=== PATIENT | male | born 1980 | race American Indian/Alaskan Native ===

== ENCOUNTER 2019-04-29 19:02 | Emergency (ER) | payer MEDICARE ==
[2019-04-29] MEDS ORDERED: ZIPRASIDONE MESYLATE 20 MG VIAL IM ONE (19:17)
[2019-04-29] MEDS ORDERED: WATER FOR INJ Sterile (PF) 10 ML ONE (19:18)
--- NOTE | 2019-04-29 20:20 | Emergency Department Report ---
HPI - General Time Seen by Provider: 04/29/19 19:59 - HPI HPI: 39-year-old -[place] male presents to the emergency department by EMS from his care home for a mental health evaluation. The patient is a poor historian or is not forthcoming and most information has come through EMS. Apparently the patient has a history of bipolar disorder. Unknown if he is on any medications or compliant with them. Apparently the patient was found walking around his care home in his boxers and talking to himself. At that point he apparently was verbally aggressive and EMS was called. When I asked the patient what happened today the patient says "[facility]." The pa ana either does not know the year or is unwilling to answer this question to assess his orientation. He will not answer all questions asked of him. The patient says "all I did was go to work" and "I just need to go back home, I promise I want drink all of the milk." ED Past Medical Hx - Past Medical History Previous Medical History?: Yes Additional medical history: bipolar, schizophrenia - Surgical History Past Surgical History?: No - Social History Smoking Status: Never Smoker ED Review of Systems ROS: Stated complaint: MH Other details as noted in HPI Comment: Unobtainable due to pts medical conditions Physical Exam - Physical Exam Physical Exam: GENERAL: The patient is well-developed well-nourished. HENT: Normocephalic. Atraumatic. Patient has moist mucous membranes. EYES: Extraocular motions are intact. NECK: Supple. Trachea is midline. CHEST/LUNGS: Clear to auscultation. There is no respiratory distress noted. HEART/CARDIOVASCULAR: Regular. There is no tachycardia. There is no murmur. ABDOMEN: Abdomen is soft, nontender. Patient has normal bowel sounds. SKIN: Skin is warm and dry. NEURO: Patient is awake but is not cooperative. No slurred speech. MUSCULOSKELETAL: There is no tenderness or deformity. There is no limitation range of motion. PSYCH: Patient appears to be expressing some tangential thoughts and delusions. ED Medical Decision Making - Lab Data Result diagrams: 04/29/19 20:43 04/29/19 20:43 - Radiology Data Radiology results: report reviewed CT of the head does not show any acute intracranial process including no ischemia, shift, mass, bleeding or skull fracture. - Medical Decision Making This patient presents to the emergency department after he was found wandering around his care home and his boxers and was showing signs of psychosis. Since the patient arrived to the emergency department he has been seen yelling, exhibiting some erratic behavior, and on examination continues with some sheridan gential thoughts and delusions. For this reason the patient has been made a 1013. He required some chemical sedation but then was compliant with labs and imaging. CT of the head did not show any bleed, shift, mass, ischemia, or any other acute process. Labs have been unremarkable including CBC, metabolic panel, blood alcohol level and urine drug screen. Vital signs stable throughout his ED course. The patient appears medically cleared for psychiatric placement. - Differential Diagnosis Bipolar disorder, schizophrenia, schizoaffective, substance abuse Critical Care Time: No Critical care attestation.: If time is entered above; I have spent that time in minutes in the direct care of this critically ill patient, excluding procedure time. ED Disposition Clinical Impression: Acute psychosis Disposition: DC/TX-65 PSY HOSP/PSY UNIT Is pt being admited?: No Condition: Stable Time of Disposition: 22:44
[2019-04-29 21:02] LABS: Hematocrit 44.5 % (35.5-45.6); Mean Corpuscular HGB Conc 34 % (32-34); Mean Corpuscular Volume 93 fl (84-94); Platelet Count 261 K/mm3 (140-440); Red Blood Count 4.82 M/mm3 (3.65-5.03); Red Cell Distribution Width 13.6 % (13.2-15.2)
[2019-04-29 21:19] LABS: Alanine Aminotransferase 43 units/L (7-56); Albumin 4.1 g/dL (3.9-5); BUN/Creatinine Ratio 11; Blood Urea Nitrogen 13 mg/dL (9-20); Calcium 8.9 mg/dL (8.4-10.2); Hemolysis Index 10
[2019-04-29 21:40] LABS: Basophils % (Manual) 0 % (0.0-1.8); Total Cells Counted 100
[2019-04-29 21:41] LABS: RBC Morphology Normal
--- NOTE | 2019-04-29 21:53 | Cat Scan Report ---
NONENHANCED CT SCAN OF THE HEAD: INDICATION / CLINICAL INFORMATION: 39 years Male; Altered mental status. TECHNIQUE: Routine CT head without contrast. All CT scans at this location are performed using CT dos e reduction for ALARA by means of automated exposure control. COMPARISON: None. FINDINGS: BRAIN / INTRACRANIAL CONTENTS: No acute hemorrhage, mass effect, midline shift, hydrocephalus, or ac [place], large territorial infarct. No chronic infarct or focal atrophy. Normal brain volume and ventricu lar/sulcal size for age. No significant white matter abnormality. CRANIOCERVICAL JUNCTION: No significant abnormality. ORBITS: No significant abnormality of visualized orbits. SINUSES / MASTOIDS: No significant abnormality of the visualized paranasal sinuses or mastoid air carlos a ls. ADDITIONAL FINDINGS: None. IMPRESSION: No acute focal parenchymal lesion in the brain Signer Name: La Piper MD Signed: 04/29/2019 9:49 PM Workstation Name: [id number]
[2019-04-29 22:08] LABS: Amphetamine Screen,Urine PRESUMPTIVE NEGATIVE; Benzodiazepines Screen,Urine PRESUMPTIVE NEGATIVE; Cannabinoid Screen,Urine PRESUMPTIVE NEGATIVE; Cocaine Screen,Urine PRESUMPTIVE NEGATIVE; Methadone Screen,Urine PRESUMPTIVE NEGATIVE; Opiate Screen,Urine PRESUMPTIVE NEGATIVE
[2019-04-29 22:09] LABS: Bilirubin,Urine NEG (Negative); Blood,Urine NEG (Negative); Color,Urine Yellow (Yellow); Mucus,Urine FEW /HPF; Protein,Urine <15 mg/dL mg/dL (Negative); Urobilinogen,Urine < 2.0 mg/dL (<2.0)
[2019-04-30] MEDS ORDERED: ZIPRASIDONE MESYLATE 20 MG VIAL IM ONE ×3 (06:51→16:28)
[2019-04-30] MEDS ORDERED: WATER FOR INJ Sterile (PF) 10 ML ONE (16:28)
[2019-05-01] MEDS ORDERED: ZIPRASIDONE MESYLATE 20 MG VIAL IM ONE (06:36)
[2019-05-01] MEDS ORDERED: LORazepam 2 MG/ML VIAL IM ONE (06:36)
[2019-05-01] MEDS ORDERED: WATER FOR INJ Sterile (PF) 10 ML ONE (06:43)
--- NOTE | 2019-05-01 11:54 | Consultation ---
History of Present Illness - Reason for Consult Consult date: 05/01/19 Reason for consult: psychosis - History of Present Psychiatric Illness Antwan Pagan is a 39y/o male patient who was admitted into the ER. During my interview, the patient is awake. He is dressed appropriately. Poor hygiene and malodorous. He is a/o x 1. He is a poor historian and evasive with most questioning. He says, "I was just chillin," when asked how was he doing. The patient says, "I'm happy. I woke up. I just gotta put my clothes on, some jewels and get back in the game." He says he was brought to the hospital, because "the police walked up to me. I was standing by my swimming pool." He then says, "I was really by the bus stop." He denies SI/HI or hallucinations of any kind. He also denies any psych history. But then tells me, "I'm on Depakote because I had a murder charge. That's why they started me on that medication." He raises his fists up as if he's about to fight. He denies any illicit drug use. PAST PSYCHIATRIC HISTORY: Diagnoses: Denies Suicide attempts or Self-harm behavior: Denies Prior psychiatric hospitalizations: Denies Substance Abuse history: Denies Previous psychiatric medications tried: Depakote Outpatient treatment: Denies PAST MEDICAL HISTORY: None reported Family Psychiatric History: None reported SOCIAL HISTORY Marital Status: Single Living Arrangements: Lives with girlfriend Employment Status: Unemployed Access to guns/weapons: Denies Education: History of Abuse: Denies Legal History: "murder charge" ROS: Constitutional: Negative for weight loss ENT: Negative for stridor Respiratory: Negative for cough or hemoptysis All other systems reviewed and are negative MENTAL STATUS General Appearance: Dressed appropriately. Poor hygiene. Behavior: Calm, cooperative, poor eye contact. Affect: Restricted Mood: "good, happy" Speech: Normal tone and pace Thought Process: tangential Thought Content Suicidal Ideation: Denies Homicidal Ideation: Denies Hallucinations: Denies Delusions: Yes Insight/Judgement: Limited Memory/Cognition: Limited ASSESSMENT: Schizoaffective Disorder RECOMMENDATIONS Risperidone 1mg po BID Depakote DR 125mg po BID Trazodone 50mg po qhs Melatonin 5mg po qhs Geodon 20mg IM q 4 hours prn agitation Risks, benefits and alternatives of medications discussed with the patient, questions answered and consent obtained from patient. PSYCHOTHERAPY: Supportive psychotherapy provided MEDICAL: Per primary team DELIRIUM PRECAUTIONS: Please re-orient patient frequently, keep lights on during the day, and minimize benzodiazepines and opiates as these medications could worsen patient's confusion. 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 He may transfer to an acute inpatient facility once medically cleared. Will continue to follow until the patient is transferred or his condition improves. The treatment plan, including benefits, and side effects of medication was discussed with the patient. The treatment plan was discussed with Dr. Pineda. Please call with any questions or concerns. Medications and Allergies Allergies Allergy/AdvReac Type Severity Reaction Status Date / Time No Known Allergies Allergy Unverified 04/30/19 06:50 Mental Status Exam - Vital signs Last Vital Signs Temp 97.8 F 05/01/19 07:00 Pulse 105 H 05/01/19 07:00 Resp 18 05/01/19 07:00 BP 138/81 05/01/19 07:00 Pulse Ox 98 05/01/19 07:00 Results Result Diagrams: 04/29/19 20:43 04/29/19 20:43 All other labs normal.
[2019-05-01] MEDS ORDERED: ZIPRASIDONE MESYLATE 20 MG VIAL IM PRN (12:16)
[2019-05-01] MEDS: DIVALPROEX DR 125 MG TAB PO SCH ×2 (14:00→22:50)
[2019-05-01] MEDS: risperiDONE 1 MG TAB PO SCH ×2 (14:00→22:50)
[2019-05-01] MEDS: traZODone 50 MG TAB PO SCH (22:50)
[2019-05-02] MEDS: risperiDONE 1 MG TAB PO SCH ×2 (10:21→22:06)
[2019-05-02] MEDS: DIVALPROEX DR 125 MG TAB PO SCH (10:21)
[2019-05-02] MEDS ORDERED: DIVALPROEX DR 125 MG TAB PO SCH (12:58)
--- NOTE | 2019-05-02 12:58 | Progress Note ---
Subjective - Reason for Consult Consult date: 05/02/19 Reason for consult: psychosis - Chief Complaint Chief complaint: During my interview with the patient today, Mr. Pagan is a/o x 2. He states he doesn't know where he is. He's difficulty to follow. His speech is tangential. He's having flight of ideas. He states, "I'm good," when asked. He tells me "I was walking down the street. I don't know nobody in the neighborhood. I went to check the mailbox." When asked was he suicidal, the patient states, "I don't like those types of questions. Why you asking that. I haven't had a gun in a while. I'm waiting on my child to come back." He then says I just want to by the bags back." He denies hallucinations of any kind, stating, "no that's why I don't watch tv, unless it's Sam." He then states, "[place] got these dope boys on the street." ROS: Constitutional: Negative for weight loss ENT: Negative for stridor Respiratory: Negative for cough or hemoptysis All other systems reviewed and are negative MENTAL STATUS General Appearance: Dressed appropriately. Poor hygiene. Behavior: cooperative Affect: Restricted Mood: "good" Speech: Normal tone and pace Thought Process: tangential, flight of ideas Thought Content Suicidal Ideation: Denies Homicidal Ideation: Denies Hallucinations: Denies Delusions: Yes Insight/Judgement: Limited Memory/Cognition: Impaired ASSESSMENT: Schizoaffective Disorder RECOMMENDATIONS Increased Risperidone 2mg po BID Increased Depakote DR 250mg po BID Risks, benefits and alternatives of medications discussed with the patient, questions answered and consent obtained from patient. PSYCHOTHERAPY: Supportive psychotherapy provided MEDICAL: Per primary team DELIRIUM PRECAUTIONS: Please re-orient patient frequently, keep lights on during the day, and minimize benzodiazepines and opiates as these medications could worsen patient's confusion. 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 He may transfer to an acute inpatient facility once medically cleared. Will continue to follow until the patient is transferred or his condition improves. The treatment plan, including benefits, and side effects of medication was discussed with the patient. The treatment plan was discussed with Dr. Pineda. Please call with any questions or concerns. Mental Status Exam - Vital signs Last Vital Signs Temp 98.8 F 05/02/19 08:44 Pulse 87 05/02/19 08:44 Resp 17 05/02/19 08:44 BP 145/73 05/02/19 08:44 Pulse Ox 99 05/02/19 08:44
[2019-05-02] MEDS: DIVALPROEX DR 250 MG TAB PO SCH ×2 (15:00→22:06)
[2019-05-02] MEDS: traZODone 50 MG TAB PO SCH (22:06)
[2019-05-02] MEDS: MELATONIN 5 MG TAB PO PRN (22:06)
[2019-05-03] MEDS: DIVALPROEX DR 250 MG TAB PO SCH ×2 (10:52→21:32)
[2019-05-03] MEDS: risperiDONE 1 MG TAB PO SCH ×2 (10:53→21:33)
--- NOTE | 2019-05-03 11:17 | XRay Report ---
CHEST 1 VIEW 05/03/2019 10:10 AM INDICATION / CLINICAL INFORMATION: cough. COMPARISON: None available. FINDINGS: SUPPORT DEVICES: None. HEART / MEDIASTINUM: Heart is upper normal size for AP portable technique. LUNGS / PLEURA: Mild patchy parenchymal density at the right lung base. No pneumothorax. ADDITIONAL FINDINGS: No significant additional findings. IMPRESSION: 1. Patchy parenchymal density at the right lung base could represent early infiltrate such as pneumon ia. Signer Name: Paresh Winston MD Signed: 05/03/2019 11:13 AM Workstation Name: [id number]
[2019-05-03] MEDS ORDERED: LIDOCAINE-MPF (1%) 10 MG/1 ML VIAL 5 ML INFILTRATI ONE (12:56)
--- NOTE | 2019-05-03 12:58 | Emergency Department Report ---
Blank Doc - Documentation Documentation: Patient brought to my attention who is been here since 04/28. He has been accep faustina at psychiatric facility. Today he had a fever and a cough. An x-ray was ordered. Chest x-ray is a single view. However it does appear that he has increased markings in the right lower lung field. I cannot exclude cardiomegaly. Additional blood work has been ordered. IM Rocephin has been ordered. Further medical decision making as per current labs and clinical condition.
[2019-05-03 14:12] LABS: Basophils % (Auto) 0.6 % (0.0-1.8); Eosinophils % (Auto) 0.4 % (0.0-4.3); Hematocrit 45.3 % (35.5-45.6); Hemoglobin 15.4 gm/dl (11.8-15.2); Lymphocytes # (Auto) 0.9 K/mm3 (1.2-5.4); Lymphocytes % (Auto) 14.9 % (13.4-35.0); Mean Corpuscular HGB Conc 34 % (32-34); Mean Corpuscular Volume 92 fl (84-94); Monocytes # (Auto) 0.8 K/mm3 (0.0-0.8); Monocytes % (Auto) 14.4 % (0.0-7.3); Platelet Count 235 K/mm3 (140-440); Red Blood Count 4.91 M/mm3 (3.65-5.03); Red Cell Distribution Width 13.5 % (13.2-15.2)
[2019-05-03] MEDS ORDERED: SODIUM CHLORIDE 0.9% 1000 ML 1,000 ML IV ONE (15:27)
[2019-05-03 16:32] LABS: INR 1.05 (0.87-1.13)
[2019-05-03 16:33] LABS: Partial Thromboplastin Time 31.7 Sec. (24.2-36.6)
[2019-05-03 16:52] LABS: Alanine Aminotransferase 20 units/L (7-56); BUN/Creatinine Ratio 14; Blood Urea Nitrogen 10 mg/dL (9-20); Calcium 8.3 mg/dL (8.4-10.2); Hemolysis Index 19
[2019-05-03 16:55] LABS: Bilirubin,Direct < 0.2 mg/dL (0-0.2)
[2019-05-03] MEDS: traZODone 50 MG TAB PO SCH (21:33)
[2019-05-03] MEDS: MELATONIN 5 MG TAB PO PRN (21:33)
[2019-05-04] MEDS: DIVALPROEX DR 250 MG TAB PO SCH ×2 (09:57→21:44)
[2019-05-04] MEDS: risperiDONE 1 MG TAB PO SCH ×2 (09:57→21:44)
--- NOTE | 2019-05-04 12:08 | Progress Note ---
Subjective - Reason for Consult Consult date: 05/04/19 Reason for consult: Psych follow up - Chief Complaint Chief complaint: Patient seen by me this morning. He is alert, fully oriented, calm and pleasant. He reports being in good mood and completely denies being suicidal or homicidal. He denies hallucinations/paranoia. He feels safe being discharged home. He states that he has taken Risperdal and Depakote before and they help him. In the past he was on Risperdal Consta which is not on Formulary in this hospital. Patient promises to take his medications as prescribed "because they keep me well" ROS: Constitutional: Negative for weight loss ENT: Negative for stridor Respiratory: Negative for cough or hemoptysis All other systems reviewed and are negative MENTAL STATUS General Appearance: Dressed appropriately. Good hygiene. Behavior: cooperative Affect: Normal Mood: "good" Speech: Normal tone and pace Thought Process: Linear and logical Thought Content Suicidal Ideation: Denies Homicidal Ideation: Denies Hallucinations: Denies Delusions: None elicited Insight/Judgement: Good Memory/Cognition: Normal ASSESSMENT: Schizoaffective Disorder RECOMMENDATIONS Discharge home on Risperidone 2mg po BID and Depakote DR 250mg po BID Risks, benefits and alternatives of medications discussed with the patient, questions answered and consent obtained from patient. PSYCHOTHERAPY: Supportive psychotherapy provided MEDICAL: Per primary team BOTTLE LABELER: May discontinue DISPOSITION: Per primary team. No indication for acute inpatient psychiatric hospitalization at this time. LEGAL STATUS: 1013 rescinded FOLLOW-UP: Will sign off The patient agreed on the treatment plan, understood the risk, benefit, alternative treatment, potential consequence of no treatment, and gave informed consent. Mental Status Exam - Vital signs Last Vital Signs Temp 98.8 F 05/04/19 07:48 Pulse 82 05/04/19 07:48 Resp 20 05/04/19 07:48 BP 121/75 05/04/19 07:48 Pulse Ox 100 05/04/19 07:48
[2019-05-04] MEDS: traZODone 50 MG TAB PO SCH (21:44)
[2019-05-05 08:01] VITALS: BP 105/84
[2019-05-05] MEDS: DIVALPROEX DR 250 MG TAB PO SCH (10:13)
[2019-05-05] MEDS: risperiDONE 1 MG TAB PO SCH (10:13)
== END 2019-05-05 11:57 ==
LOC: ED 19:02 → EEVIPCON 19:02 → ED 05-05 11:57
DX: F23 Brief psychotic disorder (principal); F25.0 Schizoaffective disorder, bipolar type
CPT/HCPCS: 36415; 70450; 71045; 80048; 80053; 80076; 80307; 81001; 82140; 83880; 84443; 85007; 85025; 85610; 85730; 96372; 99285; J0696; J2060; J3486; J7030; 80320; G0480